=== PATIENT | female | born 1965 | race American Indian/Alaskan Native ===

== ENCOUNTER 2018-01-26 15:52 | Emergency (ER) | payer SELFPAY ==
[2018-01-26] MEDS ORDERED: ZOFRAN IV ONE (17:17)
[2018-01-26] MEDS ORDERED: TORADOL IV ONE (17:17)
--- NOTE | 2018-01-26 17:17 | Emergency Department Report ---
Blank Doc - Documentation Documentation: Patient is a 52-year-old black female who presented with nausea vomiting diarrhea started yesterday. Patient states she has some crampy generalized abdominal pain as well. Patient denies any fever. Patient will be moved to the treatment room for IV fluids and labs and CT abdomen and pelvis. Patient is slightly tachycardic and does have some dizziness on standing.
[2018-01-26] MEDS ORDERED: PEPCID IV ONE (17:18)
[2018-01-26 17:37] LABS: Basophils % (Auto) 0.2 % (0.0-1.8); Eosinophils % (Auto) 0.2 % (0.0-4.3); Hematocrit 38.1 % (30.3-42.9); Hemoglobin 12.6 gm/dl (10.1-14.3); Lymphocytes # (Auto) 0.6 K/mm3 (1.2-5.4); Lymphocytes % (Auto) 8.2 % (13.4-35.0); Mean Corpuscular HGB Conc 33 % (30-34); Mean Corpuscular Hemoglobin 32 pg (28-32); Mean Corpuscular Volume 98 fl (79-97); Monocytes # (Auto) 0.4 K/mm3 (0.0-0.8); Monocytes % (Auto) 4.9 % (0.0-7.3); Platelet Count 355 K/mm3 (140-440); Red Blood Count 3.91 M/mm3 (3.65-5.03); Red Cell Distribution Width 13.6 % (13.2-15.2)
[2018-01-26 17:44] LABS: Alanine Aminotransferase 16 units/L (7-56); Albumin 4.3 g/dL (3.9-5); BUN/Creatinine Ratio 14; Blood Urea Nitrogen 10 mg/dL (7-17); Hemolysis Index 14
[2018-01-26] MEDS ORDERED: NACL ONE (18:24)
--- NOTE | 2018-01-26 19:20 | Cat Scan Report ---
FINAL REPORT PROCEDURE: CT ABDOMEN PELVIS W CON TECHNIQUE: Computerized axial tomography of the abdomen and pelvis was performed after the IV injection of iodinated nonionic contrast. DLP 2714.74 mGy-cm. HISTORY: Abdominal pain. COMPARISON: No prior studies are available for comparison. FINDINGS: Visualized lower thorax: No significant abnormality. Liver: Normal size and attenuation. Spleen: Normal size and attenuation. Gallbladder and biliary system: Gallbladder may be filled with gallstones. Common bile duct 6.5 mm. Pancreas: Normal. Adrenals: Normal. Kidneys: 3 mm low-attenuation lesion in the inferior pole of the right kidney. GI tract: Small hiatal hernia. Mild thickening of the gastric antrum. Postsurgical changes in the right lower quadrant. Normal appendix not confidently seen. Cecum, ascending and transverse colon fluid-filled. More distal colon appears normal. Lymph nodes and mesentery: Normal. Vasculature: Normal. Bladder: Normal. Reproductive organs: Retroverted uterus. Uterus mildly enlarged and heterogeneous. Small amount of fluid in the endometrial canal. Bilateral ovarian follicles with dominant 12 mm right ovarian follicle/cyst. Small foci of high attenuation measuring up to 5.5 mm about the left adnexa, unchanged between initial and delayed imaging. Peritoneum: No free fluid. Musculoskeletal structures: Moderate dextroscoliotic curvature. L5-S1 mild disc bulge and vacuum disc change. Slight L4-5 disc bulge. Small multilevel osteophytes. Other: Pelvic phleboliths. IMPRESSION: Small hiatal hernia. Mild thickening of the gastric antrum, could be related to degree of distention but consider mild gastritis. Proximal colon fluid-filled, consider mild colitis. Gallbladder may be filled with gallstones, consider right upper quadrant ultrasound. Uterus mildly enlarged and heterogeneous. Small amount of fluid in the endometrial canal. Bilateral ovarian follicles with dominant 12 mm right ovarian follicle/cyst. Small foci of high attenuation about the left adnexa. Consider small calcifications. As they are unchanged on delayed imaging, felt less likely be vascular in etiology. Consider pelvic ultrasound if there is continued clinical concern.
[2018-01-26 19:25] VITALS: BP 146/90
--- NOTE | 2018-01-26 19:25 | Emergency Department Report ---
HPI - General Chief Complaint: Nausea/Vomiting/Diarrhea Time Seen by Provider: 01/26/18 17:09 - HPI HPI: A 2-year-old -[place] female with no past medical history comes in for nausea vomiting diarrhea as well as bilateral leg pain. Patient reports she's had nausea and vomiting since yesterday she vomited 8 times. Today she's vomited 6 times. She reports she's had 6 episodes of diarrhea. She last has temperature drink about 10:30 AM. Patient reports that her bilateral leg pain it's been on and off for one month. Patient does not have a primary care provider currently takes no medications and has no known drug allergies. Patient reports she was referred to [facility] has not made an appointment yet. Patient has reported she feels much better with after having the antinausea medicine. ED Past Medical Hx - Past Medical History Previous Medical History?: No - Surgical History Hx Appendectomy: Yes - Medications Home Medications: Home Medications Medication Instructions Recorded Confirmed Last Taken Type Dicyclomine [Bentyl] 10 mg PO QID #12 capsule 01/26/18 Unknown Rx Ondansetron [Zofran Odt] 4 mg PO Q8HR #12 tab.rapdis 01/26/18 Unknown Rx ED Review of Systems ROS: Stated complaint: ABD PAIN,DIARRHEA,LOWER EXT. PAIN Other details as noted in HPI Constitutional: denies: chills, fever Eyes: denies: eye pain, eye discharge, vision change ENT: denies: ear pain, throat pain Respiratory: denies: cough, shortness of breath, wheezing Cardiovascular: denies: chest pain, palpitations Endocrine: no symptoms reported Gastrointestinal: nausea, vomiting, diarrhea Genitourinary: denies: urgency, dysuria, discharge Musculoskeletal: other (bilateral leg pain). denies: back pain, joint swelling , arthralgia Skin: denies: rash, lesions Neurological: denies: headache, weakness, paresthesias Psychiatric: denies: anxiety, depression Hematological/Lymphatic: denies: easy bleeding, easy bruising Physical Exam - Physical Exam Vital Signs: Vital Signs 01/26/18 15:56 Temperature 98.7 F Pulse Rate 106 H Respiratory 18 Rate Blood Pressure 155/91 O2 Sat by Pulse 100 Oximetry Physical Exam: GENERAL: Alert and oriented x3, no apparent distress, Normal Gait, atraumatic. HEAD: Head is normocephalic and a-traumatic. EYES: Extra ocular muscles are intact. Pupils are equal, round, and reactive to light and accommodation. EARS: symetrical, atraumatic, non tender, ear canal clear and moderate cerumen, tympanic membrance non inflamed. gross auditory nml bilaterally. NOSE: Nose symetrical, Nontender,Nares appeared normal. MOUTH:Mouth is well hydrated and without lesions. Tonsils nonerythematous or swollen, Uvula midline, Tongue not elevated. Mucous membranes are moist. Posterior pharynx clear, no exudate or lesions. Patent airways. NECK: Supple. Non edematous, No carotid bruits. No lymphadenopathy or thyromegaly. LUNGS: Symetrical with respiration, No wheezing, no rales or crackles, CTAB. HEART: S1, S2 present, regular rate and rhythm without murmur, no rubs, no gallops. ABDOMEN: No organomegaly was noted,Positive bowel sounds, soft, and non- distended. . Nontender to palpation on all Quadrants, NO CVA EXTREMITIES/MUSCULOSKELETAL: No cyanosis, clubbing, rash, lesions or edema. Full ROM bilaterally. UE/LE Pulses 2+ bilaterally. LE and UE 5+ strength bilaterally NEUROLOGIC: No focal Deficit, Cranial nerves II through XII are grossly intact. No loss of sensation, No facial droop, Negative rhomberg. PSYCHIATRIC: Mood is congruent with affect, SKIN: Warm and dry, No lesions, No ulceration or induration present ED Course Vital Signs 01/26/18 15:56 Temperature 98.7 F Pulse Rate 106 H Respiratory 18 Rate Blood Pressure 155/91 O2 Sat by Pulse 100 Oximetry ED Medical Decision Making - Lab Data Result diagrams: 01/26/18 17:22 01/26/18 17:22 - Radiology Data Radiology results: report reviewed, image reviewed IMPRESSION: Small hiatal hernia. Mild thickening of the gastric antrum, could be related to degree of distention but consider mild gastritis. Proximal colon fluid-filled, consider mild colitis. Gallbladder may be filled with gallstones, consider right upper quadrant ultrasound. Uterus mildly enlarged and heterogeneous. Small amount of fluid in the endometrial canal. Bilateral ovarian follicles with dominant 12 mm right ovarian follicle/cyst. Small foci of high attenuation about the left adnexa. Consider small calcifications. As they are unchanged on delayed imaging, felt less likely be vascular in etiology. Consider pelvic ultrasound if there is continued clinical concern. Transcribed By: JOHNATHON Dictated By: DARIUS VALIENTE MD Electronically Authenticated By: DARIUS VALIENTE MD Signed Date/Time: 01/26/181914 - Medical Decision Making Patient's been evaluated by this provider as well as Dr. Hunter. Patient's been given Pepcid IV Toradol IV and Zofran oral. CT is ordered waiting for report. Patient reports that she feels much better after having the IV medications. Patient's bilateral leg pain been on and off for a month I discussed the patient that her legs are not edematous. No erythema test most likely due to her weight. She denied any trauma no falls. I discussed the patient at this best followed by [facility] patient verbalized understanding Critical care attestation.: If time is entered above; I have spent that time in minutes in the direct care of this critically ill patient, excluding procedure time. ED Disposition Clinical Impression: Gastritis Qualifiers: Gastritis type: other gastritis Chronicity: acute Gastritis bleeding: without bleeding Qualified Code(s): K29.00 - Acute gastritis without bleeding Disposition: DC-01 TO HOME OR SELFCARE Is pt being admited?: No Does the pt Need Aspirin: No Condition: Stable Instructions: Gastritis (ED), Diet for Ulcers and Gastritis (ED) Additional Instructions: Please take medication as prescribed. Recommend following up with a shutdown coordinator [facility] for evaluation. Prescriptions: Dicyclomine [Bentyl] 10 mg PO QID #12 capsule Ondansetron [Zofran Odt] 4 mg PO Q8HR #12 tab.rapdis Referrals: PRIMARY CAREMD [Primary Care Provider] - 3-5 Days [facility] [Provider Group] - 3-5 Days [facility] [Provider Group] - 3-5 Days Forms: Accompanied Note, Work/School Release Form(ED)
[2018-01-26 21:12] LABS: HCG Qualitative,Urine Negative (Negative)
[2018-01-26 21:16] LABS: Bacteria,Urine 1+ /HPF (Negative); Bilirubin,Urine NEG (Negative); Blood,Urine NEG (Negative); Color,Urine Yellow (Yellow); Mucus,Urine 2+ /HPF; Protein,Urine <15 mg/dL mg/dL (Negative)
== END 2018-01-26 21:28 | disposition home or self-care (01) ==
LOC: ED 15:52
DX: K29.00 Acute gastritis without bleeding (principal); M79.605 Pain in left leg; M79.604 Pain in right leg; Z90.49 Acquired absence of other specified parts of digestive tract
CPT/HCPCS: 36415; 74177; 80053; 81001; 81025; 85025; 96374; 96375; 99284; J1885; J2405; Q9967

== ENCOUNTER 2018-05-31 23:00 | Emergency (ER) | payer SELFPAY ==
[2018-05-31 23:06] VITALS: BP 157/88
--- NOTE | 2018-06-01 04:37 | Emergency Department Report ---
ED Extremity Problem HPI - General Chief complaint: Extremity Problem,Nontraumatic Stated complaint: RT LEG PAIN Time Seen by Provider: 06/01/18 04:24 Source: patient Mode of arrival: Ambulatory Limitations: No Limitations - History of Present Illness Initial comments: 52-year-old -[place] female presents to the ER complaining of right leg pain 3 weeks. Patient reports that the pain is getting constant dull worse with standing and sitting. She denies any trauma she reports nothing makes it better. Denies any similar issues. She currently takes no medications has no known drug allergies has no primary care provider has a past medical history of appendicitis. MD Complaint: extremity pain -: week(s) (3 ) - Related Data Previous Rx's Medication Instructions Recorded Last Taken Type Dicyclomine [Bentyl] 10 mg PO QID #12 capsule 01/26/18 Unknown Rx Ondansetron [Zofran Odt] 4 mg PO Q8HR #12 tab.rapdis 01/26/18 Unknown Rx Ibuprofen [Motrin 800 MG tab] 800 mg PO Q8HR #30 tablet 06/01/18 Unknown Rx Allergies Allergy/AdvReac Type Severity Reaction Status Date / Time No Known Allergies Allergy Verified 05/31/18 23:28 ED Review of Systems ROS: Stated complaint: RT LEG PAIN Other details as noted in HPI Comment: All other systems reviewed and negative Respiratory: denies: cough, shortness of breath, SOB with exertion, SOB at rest , wheezing Cardiovascular: denies: chest pain Musculoskeletal: arthralgia (right knee and right calf) ED Past Medical Hx - Past Medical History Previous Medical History?: No - Surgical History Past Surgical History?: Yes Hx Appendectomy: Yes - Social History Smoking Status: Never Smoker Substance Use Type: None - Medications Home Medications: Home Medications Medication Instructions Recorded Confirmed Last Taken Type Dicyclomine [Bentyl] 10 mg PO QID #12 capsule 01/26/18 Unknown Rx Ondansetron [Zofran Odt] 4 mg PO Q8HR #12 tab.rapdis 01/26/18 Unknown Rx Ibuprofen [Motrin 800 MG tab] 800 mg PO Q8HR #30 tablet 06/01/18 Unknown Rx ED Physical Exam - General Limitations: No Limitations - Expanded Lower Extremity Exam Right Knee exam: Present: full ROM, tenderness (posterior knee). Absent: swelling Lower Leg exam: Present: tenderness (calf tenderness), Claude's sign. Absent: swelling Ankle exam: Present: normal inspection, full ROM. Absent: tenderness, swelling Foot/Toe exam: Present: normal inspection, full ROM. Absent: tenderness, swelling Neuro vascular tendon exam: Present: no vascular compromise. Absent: abnormal cap refill - Neurological Exam Neurological exam: Present: alert, oriented X3 - Psychiatric Psychiatric exam: Present: normal affect, normal mood - Skin Skin exam: Present: warm, dry, intact, normal color. Absent: rash ED Course Vital Signs 05/31/18 05/31/18 22:59 23:29 Temperature 98.2 F 98.2 F Pulse Rate 89 86 Respiratory 18 16 Rate Blood Pressure 157/88 157/88 O2 Sat by Pulse 100 96 Oximetry ED Medical Decision Making - Radiology Data Radiology results: report reviewed, image reviewed FINAL REPORT EXAM: XR KNEE 1-2V RT HISTORY: knee pain TECHNIQUE: AP and lateral views of the right knee were obtained. FINDINGS: All 3 compartments are well maintained. There is no evidence of fracture or joint effusion. There is mild patellar spurring superiorly. IMPRESSION: Mild patellar spurring. Otherwise unremarkable exam. Transcribed By: RB Dictated By: ALANIS DEL CID MD Electronically Authenticated By: ALANIS DEL CID MD Signed Date/Time: 06/01/18505 DD/ 5 TD/TT: 06/01/18505 - Medical Decision Making She has been evaluated by this provider fast track. Patient complains of right leg pain in the posterior knee. She also has tenderness to palpate of the right calf. Order basic labs CBC d-dimer and x-ray of right knee. Discussed the patient if the x-ray comes back negative and the d-dimer is mildly elevated will have patient follow up tomorrow morning for outpatient venous Doppler of the lower right extremity. Critical care attestation.: If time is entered above; I have spent that time in minutes in the direct care of this critically ill patient, excluding procedure time. ED Disposition Clinical Impression: Right leg pain Disposition: DC-01 TO HOME OR SELFCARE Is pt being admited?: No Does the pt Need Aspirin: No Condition: Stable Additional Instructions: Take pain medication as needed. Follow up with her primary care provider I have listed one below. Prescriptions: Ibuprofen [Motrin 800 MG tab] 800 mg PO Q8HR #30 tablet Referrals: PRIMARY CARE, [Primary Care Provider] - 3-5 Days [facility] [Provider Group] - 3-5 Days Forms: Work/School Release Form(ED), Accompanied Note
[2018-06-01] MEDS ORDERED: MOTRIN PO ONE (04:47)
--- NOTE | 2018-06-01 05:10 | XRay Report ---
FINAL REPORT EXAM: XR KNEE 1-2V RT HISTORY: knee pain TECHNIQUE: AP and lateral views of the right knee were obtained. FINDINGS: All 3 compartments are well maintained. There is no evidence of fracture or joint effusion. There is mild patellar spurring superiorly. IMPRESSION: Mild patellar spurring. Otherwise unremarkable exam.
[2018-06-01 05:21] LABS: Basophils % (Auto) 0.9 % (0.0-1.8); Eosinophils # (Auto) 0.5 K/mm3 (0.0-0.4); Eosinophils % (Auto) 9.3 % (0.0-4.3); Lymphocytes # (Auto) 1.3 K/mm3 (1.2-5.4); Lymphocytes % (Auto) 24.2 % (13.4-35.0); Mean Corpuscular HGB Conc 33 % (30-34); Mean Corpuscular Hemoglobin 32 pg (28-32); Mean Corpuscular Volume 97 fl (79-97); Mean Platelet Volume 8.3 fl (6-12); Monocytes # (Auto) 0.5 K/mm3 (0.0-0.8); Monocytes % (Auto) 10.1 % (0.0-7.3); Platelet Count 269 K/mm3 (140-440); Red Blood Count 3.83 M/mm3 (3.65-5.03); Red Cell Distribution Width 15.3 % (13.2-15.2)
== END 2018-06-01 05:55 | disposition home or self-care (01) ==
LOC: ED 23:00
DX: M79.604 Pain in right leg (principal)
CPT/HCPCS: 36415; 85025; 85379; 99283; 99284

== ENCOUNTER 2018-06-30 23:32 | Emergency (ER) | payer SELFPAY ==
[2018-07-01] MEDS ORDERED: NACL 0.9% 1000 ML 1,000 ML IV ONE ×2 (00:53→02:16)
[2018-07-01 01:14] LABS: Basophils # (Auto) 0.1 K/mm3 (0.0-0.1); Basophils % (Auto) 1.7 % (0.0-1.8); Eosinophils # (Auto) 0.2 K/mm3 (0.0-0.4); Eosinophils % (Auto) 2.5 % (0.0-4.3); Hematocrit 38.2 % (30.3-42.9); Hemoglobin 12.9 gm/dl (10.1-14.3); Lymphocytes # (Auto) 2.1 K/mm3 (1.2-5.4); Lymphocytes % (Auto) 28.2 % (13.4-35.0); Mean Corpuscular HGB Conc 34 % (30-34); Mean Corpuscular Hemoglobin 33 pg (28-32); Mean Corpuscular Volume 98 fl (79-97); Monocytes # (Auto) 0.7 K/mm3 (0.0-0.8); Platelet Count 262 K/mm3 (140-440); Red Blood Count 3.88 M/mm3 (3.65-5.03); Red Cell Distribution Width 14.7 % (13.2-15.2)
[2018-07-01 01:26] LABS: Alanine Aminotransferase 12 units/L (7-56); BUN/Creatinine Ratio 18; Blood Urea Nitrogen 11 mg/dL (7-17); Hemolysis Index 7
[2018-07-01] MEDS ORDERED: ZOFRAN ODT PO ONE (02:16)
[2018-07-01] MEDS ORDERED: TORADOL IV ONE (02:16)
[2018-07-01 02:56] LABS: Bilirubin,Urine NEG (Negative); Blood,Urine NEG (Negative); Color,Urine Yellow (Yellow); Mucus,Urine 3+ /HPF
--- NOTE | 2018-07-01 03:53 | Cat Scan Report ---
FINAL REPORT PROCEDURE: CT ABDOMEN PELVIS W CON TECHNIQUE: Computerized axial tomography of the abdomen and pelvis was performed after the IV injection of iodinated nonionic contrast. HISTORY: abdominal pain COMPARISON: No prior studies are available for comparison. FINDINGS: Visualized lower thorax: No significant abnormality. Liver: Normal size and attenuation. Spleen: Normal size and attenuation. Gallbladder and biliary system: There are stones identified within the gallbladder lumen. No dilatation of the biliary ductal system. Pancreas: Normal. Adrenals: Normal. Kidneys: Normal. GI tract: No obstruction. No ileus or enteritis. The cecum, appendix and colon are normal.. Lymph nodes and mesentery: Normal. Vasculature: Normal. Bladder: Normal. Reproductive organs: The uterus is normal. There is a dominant cyst on the left ovary this measures 2 centimeters.. Peritoneum: No free fluid. Musculoskeletal structures: No significant abnormality. Other: None. IMPRESSION: There is no evidence of intestinal or urinary tract obstruction. No ileus or enteritis. The appendix is normal. Dominant cyst right ovary measures 2 centimeters.
[2018-07-01 04:06] VITALS: BP 122/72
--- NOTE | 2018-07-01 04:31 | Emergency Department Report ---
ED Abdominal Pain HPI - General Chief Complaint: Abdominal Pain Stated Complaint: N/V/D, WEEKNESS Time Seen by Provider: 07/01/18 02:17 Source: patient Mode of arrival: Ambulatory Limitations: No Limitations - History of Present Illness Initial Comments: 24 hours of bilateral lower abd pain and back pain with N/V, chills, and a fever to 101 yesterday. Has frequency, but no dysuria. No vaginal complaints. Pain is constant and dull. Severity scale (0 -10): 4 - Related Data Previous Rx's Medication Instructions Recorded Last Taken Type Dicyclomine [Bentyl] 10 mg PO QID #12 capsule 01/26/18 Unknown Rx Ondansetron [Zofran Odt] 4 mg PO Q8HR #12 tab.rapdis 01/26/18 Unknown Rx Ibuprofen [Motrin 800 MG tab] 800 mg PO Q8HR #30 tablet 06/01/18 Unknown Rx Cephalexin [Keflex] 500 mg PO Q8HR #30 cap 07/01/18 Unknown Rx Ondansetron [Zofran Odt] 4 mg PO Q8H PRN #10 tab.rapdis 07/01/18 Unknown Rx traMADol [Ultram 50 MG tab] 50 mg PO Q6HR PRN #10 tablet 07/01/18 Unknown Rx Allergies Allergy/AdvReac Type Severity Reaction Status Date / Time No Known Allergies Allergy Verified 05/31/18 23:28 ED Review of Systems ROS: Stated complaint: N/V/D, WEEKNESS Other details as noted in HPI Comment: All other systems reviewed and negative Constitutional: fever, malaise, weakness Gastrointestinal: abdominal pain, nausea, vomiting Genitourinary: frequency Musculoskeletal: back pain ED Past Medical Hx - Past Medical History Previous Medical History?: Yes Hx Diabetes: Yes - Surgical History Past Surgical History?: Yes Hx Appendectomy: Yes - Social History Smoking Status: Never Smoker Substance Use Type: None - Medications Home Medications: Home Medications Medication Instructions Recorded Confirmed Last Taken Type Dicyclomine [Bentyl] 10 mg PO QID #12 capsule 01/26/18 Unknown Rx Ondansetron [Zofran Odt] 4 mg PO Q8HR #12 tab.rapdis 01/26/18 Unknown Rx Ibuprofen [Motrin 800 MG tab] 800 mg PO Q8HR #30 tablet 07/04/18 Unknown Rx Cephalexin [Keflex] 500 mg PO Q8HR #30 cap 07/01/18 Unknown Rx Ondansetron [Zofran Odt] 4 mg PO Q8H PRN #10 tab.rapdis 07/01/18 Unknown Rx traMADol [Ultram 50 MG tab] 50 mg PO Q6HR PRN #10 tablet 07/01/18 Unknown Rx ED Physical Exam - General Limitations: No Limitations General appearance: alert, in no apparent distress - Head Head exam: Present: atraumatic, normocephalic - Eye Eye exam: Present: normal appearance - ENT ENT exam: Present: mucous membranes moist - Neck Neck exam: Present: normal inspection - Respiratory Respiratory exam: Present: normal lung sounds bilaterally. Absent: respiratory distress - Cardiovascular Cardiovascular Exam: Present: regular rate, normal rhythm. Absent: systolic murmur, diastolic murmur, rubs, gallop - GI/Abdominal GI/Abdominal exam: Present: soft, tenderness (rlq, llq), normal bowel sounds - Extremities Exam Extremities exam: Present: normal inspection - Back Exam Back exam: Present: normal inspection - Neurological Exam Neurological exam: Present: alert, oriented X3 - Psychiatric Psychiatric exam: Present: normal affect, normal mood - Skin Skin exam: Present: warm, dry, intact, normal color. Absent: rash ED Course Vital Signs 06/30/18 07/01/18 07/01/18 23:57 01:46 02:00 Temperature 98.6 F 97.9 F Pulse Rate 81 67 Respiratory 16 18 Rate Blood Pressure 145/74 128/77 Blood Pressure 132/81 [Left] O2 Sat by Pulse 100 100 100 Oximetry 07/01/18 03:58 Temperature Pulse Rate Respiratory Rate Blood Pressure 122/72 Blood Pressure [Left] O2 Sat by Pulse 99 Oximetry ED Medical Decision Making - Lab Data Result diagrams: 07/01/18 00:57 07/01/18 00:57 - Medical Decision Making 52 yo female with no sig pmhx that p/w multiple complaints. VSS. Pt is well appearing. Lab work is neg. CT shows no acute abnormalities. Urinalysis is concerning for infection. Given h/o vomiting and fevers, I am concerned for pyelo. Pt will be started on keflex/tramadol/zofran and given pcp f/u. - Differential Diagnosis pyelo, uti, diverticulitis, sbo, constipation, malignancy, torsion Critical care attestation.: If time is entered above; I have spent that time in minutes in the direct care of this critically ill patient, excluding procedure time. ED Disposition Clinical Impression: Pyelonephritis Disposition: TO HOME OR SELFCARE Is pt being admited?: No Does the pt Need Aspirin: No Condition: Stable Instructions: Acute Pyelonephritis (ED) Additional Instructions: Please follow up with your family doctor if symptoms fail to improve in 3-5 days. Prescriptions: Cephalexin [Keflex] 500 mg PO Q8HR #30 cap Ondansetron [Zofran Odt] 4 mg PO Q8H PRN #10 tab.rapdis PRN Reason: Nausea traMADol [Ultram 50 MG tab] 50 mg PO Q6HR PRN #10 tablet PRN Reason: Pain Referrals: PRIMARY CARE,MD [Primary Care Provider] - 3-5 Days [facility] [Outside] - 3-5 Days
[2018-07-01] MEDS ORDERED: KEFLEX PO ONE (04:34)
[2018-07-01] MEDS ORDERED: KEFLEX ONE (05:01)
== END 2018-07-01 05:20 | disposition home or self-care (01) ==
LOC: ED 23:32
DX: N12 Tubulo-interstitial nephritis, not specified as acute or chronic (principal); E11.9 Type 2 diabetes mellitus without complications; Z90.89 Acquired absence of other organs
CPT/HCPCS: 36415; 74177; 80053; 81001; 82962; 85025; 96361; 96374; 99284; J1885; J7030; Q9967; Q0162